=== PATIENT | male | born 1985 | race Two or more races ===

== ENCOUNTER 2021-05-12 13:45 | Emergency (ER) | payer OTHER ==
[~2021-05-12] VITALS: Ht 188 cm; Wt 72.6 kg
--- NOTE | 2021-05-12 13:53 | NUR ---
TO ER BED 3, C/O ABDOMINAL PAIN 15MINS PRIOR TO AMBULANCE ARRIVAL TO PT WORK, PER PT HE STARTED REDUCING CALORIES INTAKE TO 1500/DAY, NO OTHER HISTORY OF GI PROBLEMS, AAOX3, BREATHING EVEN AND NON LABORED
--- NOTE | 2021-05-12 14:30 | NUR ---
US TECH AT PT'S BEDSIDE
[2021-05-12] MEDS ORDERED: PANTOPRAZOLE 40 MG VIAL ONE (14:35)
--- NOTE | 2021-05-12 14:45 | NUR ---
URINE SAMPLE COLLECTED AND SENT TO LAB
--- NOTE | 2021-05-12 14:50 | NUR ---
SALINE LOCK ESTABLISHED AND BLOOD DRAWN
[2021-05-12] MEDS: PANTOPRAZOLE 40 MG VIAL IV ONE (14:52)
[2021-05-12] MEDS: IV NS 0.9% 1,000 ML BAG IV ONE (14:52)
[2021-05-12 15:13] LABS: BASOPHILS # (AUTO) 0.1 K/uL (0.0-0.2); BASOPHILS % (AUTO) 0.5 % (0.0-2.0); EOSINOPHILS % (AUTO) 0.9 % (0.0-6.0); HEMATOCRIT 39 % (39-51); HEMOGLOBIN 13.6 g/dL (13.5-17.5); LYMPHOCYTES # (AUTO) 2.3 K/uL (0.8-4.8); LYMPHOCYTES % (AUTO) 21.6 % (20.0-44.0); MEAN CORPUSCULAR HGB CONC 35 g/dl (31.0-36.0); MEAN CORPUSCULAR VOLUME 88 fL (80-96); MONOCYTES # (AUTO) 0.9 K/uL (0.1-1.30); MONOCYTES % (AUTO) 8.5 % (2.0-12.0); NEUTROPHILS # (AUTO) 7.3 K/uL (1.8-8.9); NEUTROPHILS % (AUTO) 68.5 % (43.0-81.0); PLATELET COUNT (AUTO) 244 K/uL (150-450); RED BLOOD CELL COUNT(AUTO) 4.46 MIL/uL (4.5-6.0); WHITE BLOOD COUNT (AUTO) 10.7 K/uL (4.3-11.0)
[2021-05-12 15:23] LABS: ALBUMIN 4.1 g/dL (3.4-5.0); BILIRUBIN,DIRECT 0.2 mg/dL (0.0-0.2); BILIRUBIN,TOTAL 0.6 mg/dL (0.2-1.0); CALCIUM, SERUM 8.8 mg/dL (8.5-10.1); CREATININE 0.9 mg/dL (0.6-1.3); POTASSIUM 3.9 mmol/L (3.5-5.1); TOTAL PROTEIN, SERUM 7.8 g/dL (6.4-8.2)
[2021-05-12 15:26] LABS: BILIRUBIN,URINE Negative (NEGATIVE); COLOR,URINE YELLOW (YELLOW); LEUKOCYTE ESTERASE ,URINE Negative (NEGATIVE); NITRITE, URINE Negative (NEGATIVE); PH,URINE 8.5 (5.0-8.0); PROTEIN,URINE Negative (NEGATIVE); UGLUCOSE Negative (NEGATIVE); UROBILINOGEN,URINE 0.2 EU/dL (0.2)
[2021-05-12] MEDS ORDERED: OMEP20CA15 PO (16:07)
--- NOTE | 2021-05-12 16:24 | NUR ---
IV removed. Catheter intact and site benign. Pressure and 4x4 applied to site. No bleeding noted.Patient discharged to home in stable condition. Written and verbal after care instructions given. Patient verbalizes understanding of instruction.
[2021-05-12 16:25] VITALS: BP 124/59
== END 2021-05-12 16:25 | disposition home or self-care (01) ==
LOC: ER 13:49
DX: R10.13 Epigastric pain (principal); E86.0 Dehydration; F41.9 Anxiety disorder, unspecified; Z79.899 Other long term (current) drug therapy
CPT/HCPCS: 36415; 76705; 80048; 80076; 81003; 83690; 85025; 96361; 96374; 99284; C9113; J7030